=== PATIENT | female | born 2000 | race Caucasian/White ===

== ENCOUNTER 2023-02-20 10:29 | Emergency (ER) | payer BC ==
[~2023-02-20] VITALS: Ht 149.9 cm; Wt 40.8 kg
[2023-02-20] MEDS ORDERED: ZITHROMAX TRI-500 MG PO (15:23)
== END 2023-02-20 15:25 | disposition home or self-care (01) ==
LOC: ER 10:29
DX: B34.9 Viral infection, unspecified (principal); Z88.6 Allergy status to analgesic agent; Z20.822 Contact with and (suspected) exposure to COVID-19